=== PATIENT | female | born 1970 | race Caucasian/White ===

== ENCOUNTER → 2016-04-30 | Outpatient (CLI) | payer OTHER, BC ==
[~2016-04-30] MED LIST: ACYCLOVIR 400400 MG PO; ALLOPURINOL 30300 M2 PO; ASPIRIN PO; ATIVAN1 MG PO; BACTRIM DS TAB1 EACH PO; BIOTIN10000 MC1 PO; CALCIUM 600 +1 EAC1 PO; COLACE100 MG PO; CYCLOBENZAPRINE5 MG PO; DEXAMETHASONE4 MG PO; EVENING PRIMR1000 MG PO; FENTANYL PA50 MCG/HR TRANSDERM; FENTANYL PATCH; FLAX SEED OIL1000 MG PO; GABAPENTIN 100100 MG PO; GARCINIA CAMBO1 EACH PO; HYDROCODONE-AP1 EAC6 PO; IBUPROFEN 200200 M1 PO; KLOR-CON 1010 MEQ PO; KYPROLIS30 MG IV; LASIX 20 MG TAB20 MG PO; LIDODERM 5%1 PATC1 TRANSDERM; MELATONIN PO; MILK OF MA2400 MG/10 PO; OMEGA-31000 M1 PO; OMEPRAZOLE20 M2 PO; ONDANSETRON HCL4 M2 PO; OXYCODONE HCL15 MG PO; PHILLIPS CAPLETS PO; REVLIMID25 MG PO; TRAZODONE HCL100 MG PO; UNICOMPLEX M TA1 TA1 PO; VELCADE3.5 MG SUBQ; VITAMIN B-1100 M1 PO; VITAMIN D2000 UNIT PO; VITAMIN E400 UNIT PO; [UNRECOGNIZED DRUG - OTHER] IV; [UNRECOGNIZED DRUG - OTHER] PO
[2016-04-30 12:22] LABS: HEMATOCRIT 38.7 % (37.0-47.0); MCHC 33.5 % (28.0-37.0); MCV 89.5 fL (80.0-100.0); PLATELET COUNT 152 thou/uL (150-400); RBC 4.33 mil/uL (4.20-5.00); RDW 14.6 % (10.5-14.5); WBC 2.9 thou/uL (4.0-11.0)
[2016-04-30 12:27] LABS: MANUAL DIFF YES
[2016-04-30 12:40] LABS: ALBUMIN 3.8 g/dL (3.4-5.0); CALCIUM 9.3 mg/dL (8.5-10.1); CREATININE 0.8 mg/dL (0.6-1.3); POTASSIUM 4.3 mmol/L (3.5-5.1); TOTAL BILIRUBIN 0.4 mg/dL (<0.1-1.0); TOTAL PROTEIN 7.2 g/dL (6.4-8.2)
[2016-04-30 12:48] LABS: ABSOLUTE NEUTROPHILS 1.5 thou/uL (1.4-8.2); TOTAL CELL COUNT 100
== END ==
LOC: OPONC 08:21
PROVIDERS: Internal Medicine Hematology & Oncology
DX: C90.00 Multiple myeloma not having achieved remission (principal)

== ENCOUNTER → 2016-05-15 | Outpatient (CLI) | payer OTHER, BC ==
[~2016-05-15] VITALS: Ht 172.7 cm; Wt 66.7 kg
[2016-05-15 11:22] VITALS: BP 109/75
[2016-05-15 11:25] LABS: HEMATOCRIT 37.6 % (37.0-47.0); HEMOGLOBIN 12.6 gm/dL (12.0-15.0); MCH 29.9 pg (26.0-34.0); MCHC 33.5 % (28.0-37.0); MCV 89.2 fL (80.0-100.0); PLATELET COUNT 135 thou/uL (150-400); RBC 4.21 mil/uL (4.20-5.00); RDW 13.5 % (10.5-14.5); WBC 2.9 thou/uL (4.0-11.0)
[2016-05-15 11:27] LABS: MANUAL DIFF YES
[2016-05-15 11:32] LABS: CALCIUM 8.9 mg/dL (8.5-10.1); CREATININE 0.7 mg/dL (0.6-1.3); POTASSIUM 3.6 mmol/L (3.5-5.1)
[2016-05-15 11:37] LABS: ALBUMIN 3.4 g/dL (3.4-5.0); TOTAL BILIRUBIN 0.4 mg/dL (<0.1-1.0); TOTAL PROTEIN 6.7 g/dL (6.4-8.2)
[2016-05-15 11:59] LABS: ABSOLUTE NEUTROPHILS 1.9 thou/uL (1.4-8.2); TOTAL CELL COUNT 100
[2016-05-15 12:00] LABS: ANISOCYTOSIS SLIGHT
== END ==
LOC: OPONC 02:15
PROVIDERS: Internal Medicine Hematology & Oncology
DX: Z51.11 Encounter for antineoplastic chemotherapy (principal); C90.00 Multiple myeloma not having achieved remission

== ENCOUNTER → 2016-05-16 | Outpatient (CLI) | payer OTHER, BC ==
[2016-05-16 12:51] VITALS: BP 93/63
[2016-05-16 14:11] LABS: IgA 178 mg/dL (87-352); IgG 758 mg/dL (700-1600); IgM 23 mg/dL (26-217)
[2016-05-19 10:10] LABS: KAPPA FREE LIGHT CHAINS 5.7 mg/L (3.30-19.40); KAPPA/LAMBDA RATIO 0.95 (0.26-1.65); LAMBDA FREE LIGHT CHAINS 5.98 mg/L (5.71-26.30)
[2016-05-19 13:10] LABS: A/G RATIO 1.5 (0.7-1.7); ALBUMIN 3.5 g/dL (2.9-4.4); ALPHA 1 0.2 g/dL (0.0-0.4); ALPHA 2 0.6 g/dL (0.4-1.0); BETA 0.8 g/dL (0.7-1.3); GAMMA 0.7 g/dL (0.4-1.8); M-SPIKE Not Observed g/dL (Not Observed)
[2016-05-19 19:08] LABS: IFES COMMENT Note: (())
== END ==
LOC: OPONC 02:42
PROVIDERS: Internal Medicine Hematology & Oncology
DX: Z51.11 Encounter for antineoplastic chemotherapy (principal); C90.00 Multiple myeloma not having achieved remission

== ENCOUNTER → 2016-05-21 | Outpatient (CLI) | payer OTHER, BC ==
[2016-05-21 11:24] LABS: HEMATOCRIT 35.7 % (37.0-47.0); HEMOGLOBIN 12.1 gm/dL (12.0-15.0); MCHC 33.8 % (28.0-37.0); MCV 88.9 fL (80.0-100.0); RBC 4.02 mil/uL (4.20-5.00); RDW 13.6 % (10.5-14.5); WBC 2.4 thou/uL (4.0-11.0)
[2016-05-21 11:27] LABS: MANUAL DIFF YES
[2016-05-21 11:33] LABS: CALCIUM 8.4 mg/dL (8.5-10.1); CREATININE 0.7 mg/dL (0.6-1.3); POTASSIUM 4.1 mmol/L (3.5-5.1)
[2016-05-21 11:40] LABS: ALBUMIN 3.2 g/dL (3.4-5.0); TOTAL BILIRUBIN 0.3 mg/dL (<0.1-1.0); TOTAL PROTEIN 6.4 g/dL (6.4-8.2)
[2016-05-21 11:45] VITALS: BP 97/65
[2016-05-21 12:01] LABS: ABSOLUTE NEUTROPHILS 1.5 thou/uL (1.4-8.2); TOTAL CELL COUNT 100
[2016-05-21 12:03] LABS: PLATELET COUNT 80 thou/uL (150-400)
== END ==
LOC: OPONC 02:07
PROVIDERS: Internal Medicine Hematology & Oncology
DX: Z51.11 Encounter for antineoplastic chemotherapy (principal); C90.00 Multiple myeloma not having achieved remission

== ENCOUNTER → 2016-05-22 | Outpatient (CLI) | payer OTHER, BC ==
[2016-05-22 12:40] VITALS: BP 104/63
== END ==
LOC: OPONC 02:42
DX: Z51.11 Encounter for antineoplastic chemotherapy (principal); C90.00 Multiple myeloma not having achieved remission

== ENCOUNTER → 2016-06-18 | Outpatient (CLI) | payer OTHER, BC ==
[2016-06-18 10:17] LABS: MCH 30.2 pg (26.0-34.0); MCHC 33.5 g/dL (28.0-37.0); MCV 90.1 fL (80.0-100.0); PLATELET COUNT 126 thou/uL (150-400); RBC 3.99 mil/uL (4.20-5.00); RDW 14.1 % (10.5-14.5); WBC 3.7 thou/uL (4.0-11.0)
[2016-06-18 10:19] LABS: MANUAL DIFF YES
[2016-06-18 10:24] LABS: CALCIUM 8.7 mg/dL (8.5-10.1); CREATININE 0.7 mg/dL (0.6-1.3); POTASSIUM 4.1 mmol/L (3.5-5.1)
[2016-06-18 10:30] LABS: ALBUMIN 3.2 g/dL (3.4-5.0); TOTAL BILIRUBIN 0.5 mg/dL (<0.1-1.0); TOTAL PROTEIN 6.2 g/dL (6.4-8.2)
[2016-06-18 11:18] LABS: ABSOLUTE NEUTROPHILS 2.8 thou/uL (1.4-8.2); PLATELET ESTIMATE NORMAL; TOTAL CELL COUNT 100
[2016-06-18 20:10] LABS: IgA 82 mg/dL (87-352); IgG 604 mg/dL (700-1600); IgM 26 mg/dL (26-217)
[2016-06-19 13:08] LABS: KAPPA FREE LIGHT CHAINS 10.95 mg/L (3.30-19.40); KAPPA/LAMBDA RATIO 0.88 (0.26-1.65); LAMBDA FREE LIGHT CHAINS 12.44 mg/L (5.71-26.30)
[2016-06-20 15:06] LABS: A/G RATIO 1.4 (0.7-1.7); ALBUMIN 3.3 g/dL (2.9-4.4); ALPHA 1 0.2 g/dL (0.0-0.4); ALPHA 2 0.6 g/dL (0.4-1.0); BETA 0.9 g/dL (0.7-1.3); GAMMA 0.5 g/dL (0.4-1.8); M-SPIKE Not Observed g/dL (Not Observed)
[2016-06-20 20:10] LABS: IFES COMMENT Note: (())
== END ==
LOC: OPONC 03:05
PROVIDERS: Internal Medicine Hematology & Oncology
DX: C90.00 Multiple myeloma not having achieved remission (principal)

== ENCOUNTER → 2016-06-25 | Outpatient (CLI) | payer OTHER, BC ==
[2016-06-25 09:02] LABS: HEMATOCRIT 36.7 % (37.0-47.0); HEMOGLOBIN 12.3 gm/dL (12.0-15.0); MCH 30.5 pg (26.0-34.0); MCHC 33.6 g/dL (28.0-37.0); MCV 90.8 fL (80.0-100.0); PLATELET COUNT 132 thou/uL (150-400); RBC 4.04 mil/uL (4.20-5.00); RDW 15.3 % (10.5-14.5); WBC 2.6 thou/uL (4.0-11.0)
[2016-06-25 09:04] LABS: MANUAL DIFF YES
[2016-06-25 09:17] LABS: ALBUMIN 3.3 g/dL (3.4-5.0); CALCIUM 8.7 mg/dL (8.5-10.1); CREATININE 0.7 mg/dL (0.6-1.3); POTASSIUM 4.1 mmol/L (3.5-5.1); TOTAL BILIRUBIN 0.4 mg/dL (<0.1-1.0); TOTAL PROTEIN 6.2 g/dL (6.4-8.2)
[2016-06-25 09:47] LABS: HIV-1 P24 AG Nonreactive (Nonreactive)
[2016-06-25 09:54] LABS: ABSOLUTE NEUTROPHILS 1.6 thou/uL (1.4-8.2); ATYPICAL LYMPHS 4 %; TOTAL CELL COUNT 100
[2016-06-25 09:55] LABS: ANISOCYTOSIS SLIGHT; MICROCYTES SLIGHT
[2016-06-25 17:10] LABS: HEPATITIS C VIRUS AB <0.1 (0.0-0.9)
== END ==
LOC: OPONC 02:06
PROVIDERS: Internal Medicine Hematology & Oncology
DX: C90.00 Multiple myeloma not having achieved remission (principal)

== ENCOUNTER → 2016-07-16 | Outpatient (CLI) | payer OTHER, BC ==
[2016-07-16 08:33] LABS: HEMOGLOBIN 12.2 gm/dL (12.0-15.0); MCH 31.4 pg (26.0-34.0); MCV 92.4 fL (80.0-100.0); PLATELET COUNT 107 thou/uL (150-400); RBC 3.89 mil/uL (4.20-5.00); RDW 15.1 % (10.5-14.5); WBC 2.9 thou/uL (4.0-11.0)
[2016-07-16 08:35] LABS: MANUAL DIFF YES
[2016-07-16 08:46] LABS: ALBUMIN 3.2 g/dL (3.4-5.0); CALCIUM 8.6 mg/dL (8.5-10.1); CREATININE 0.8 mg/dL (0.6-1.3); POTASSIUM 3.8 mmol/L (3.5-5.1); TOTAL BILIRUBIN 0.5 mg/dL (<0.1-1.0)
[2016-07-16 09:11] LABS: ABSOLUTE NEUTROPHILS 1.9 thou/uL (1.4-8.2); TOTAL CELL COUNT 100
== END ==
LOC: OPONC 13:07
PROVIDERS: Internal Medicine Hematology & Oncology
DX: C90.00 Multiple myeloma not having achieved remission (principal)

== ENCOUNTER → 2016-07-23 | Outpatient (CLI) | payer OTHER, BC ==
[2016-07-23 08:15] VITALS: BP 92/36
[2016-07-23 08:43] LABS: HEMATOCRIT 33.9 % (37.0-47.0); HEMOGLOBIN 11.5 gm/dL (12.0-15.0); MCH 31.7 pg (26.0-34.0); MCHC 33.8 g/dL (28.0-37.0); MCV 93.7 fL (80.0-100.0); PLATELET COUNT 90 thou/uL (150-400); RBC 3.62 mil/uL (4.20-5.00); RDW 14.1 % (10.5-14.5)
[2016-07-23 08:45] LABS: MANUAL DIFF YES
[2016-07-23 08:56] LABS: ALBUMIN 2.9 g/dL (3.4-5.0); CALCIUM 8.3 mg/dL (8.5-10.1); CREATININE 0.8 mg/dL (0.6-1.3); POTASSIUM 3.7 mmol/L (3.5-5.1); TOTAL BILIRUBIN 0.6 mg/dL (<0.1-1.0); TOTAL PROTEIN 5.5 g/dL (6.4-8.2)
[2016-07-23 09:18] LABS: ABSOLUTE NEUTROPHILS 0.9 thou/uL (1.4-8.2); TOTAL CELL COUNT 100
[2016-07-23 09:19] LABS: ANISOCYTOSIS SLIGHT
[2016-07-23 13:12] LABS: IgA 82 mg/dL (87-352); IgG 534 mg/dL (700-1600)
[2016-07-23 14:14] LABS: IgM 17 mg/dL (26-217)
[2016-07-24 12:10] LABS: KAPPA FREE LIGHT CHAINS 11.79 mg/L (3.30-19.40); KAPPA/LAMBDA RATIO 0.94 (0.26-1.65); LAMBDA FREE LIGHT CHAINS 12.59 mg/L (5.71-26.30)
[2016-07-24 19:12] LABS: A/G RATIO 1.6 (0.7-1.7); ALBUMIN 3.1 g/dL (2.9-4.4); ALPHA 1 0.3 g/dL (0.0-0.4); ALPHA 2 0.5 g/dL (0.4-1.0); BETA 0.8 g/dL (0.7-1.3); GAMMA 0.4 g/dL (0.4-1.8); M-SPIKE Not Observed g/dL (Not Observed)
[2016-07-25 18:06] LABS: IFES COMMENT Note: (())
== END ==
LOC: OPONC 07:09
PROVIDERS: Internal Medicine Hematology & Oncology
DX: C90.00 Multiple myeloma not having achieved remission (principal)

== ENCOUNTER → 2016-07-30 | Outpatient (CLI) | payer OTHER, BC ==
[2016-07-30 09:02] LABS: HEMATOCRIT 36.4 % (37.0-47.0); HEMOGLOBIN 12.3 gm/dL (12.0-15.0); MCH 31.4 pg (26.0-34.0); MCHC 33.7 g/dL (28.0-37.0); MCV 93.3 fL (80.0-100.0); PLATELET COUNT 103 thou/uL (150-400); RDW 13.9 % (10.5-14.5); WBC 2.2 thou/uL (4.0-11.0)
[2016-07-30 09:07] LABS: MANUAL DIFF YES
[2016-07-30 09:09] LABS: CALCIUM 8.6 mg/dL (8.5-10.1); CREATININE 0.8 mg/dL (0.6-1.0); POTASSIUM 4.3 mmol/L (3.5-5.1)
[2016-07-30 09:14] LABS: ALBUMIN 3.2 g/dL (3.4-5.0); TOTAL BILIRUBIN 0.5 mg/dL (<0.1-1.0); TOTAL PROTEIN 5.8 g/dL (6.4-8.2)
[2016-07-30 09:41] LABS: ABSOLUTE NEUTROPHILS 1.2 thou/uL (1.4-8.2); PLATELET ESTIMATE SLIGHTLY DECREASED; TOTAL CELL COUNT 100
== END ==
LOC: OPONC 06:31
PROVIDERS: Internal Medicine Hematology & Oncology
DX: C90.00 Multiple myeloma not having achieved remission (principal); R94.5 Abnormal results of liver function studies

== ENCOUNTER → 2016-08-06 | Outpatient (CLI) | payer OTHER, BC ==
[2016-08-06 08:20] LABS: HEMOGLOBIN 13.2 gm/dL (12.0-15.0)
[2016-08-06 08:22] LABS: HEMATOCRIT 39.3 % (37.0-47.0); MCH 31.8 pg (26.0-34.0); MCHC 33.7 g/dL (28.0-37.0); MCV 94.6 fL (80.0-100.0); PLATELET COUNT 136 thou/uL (150-400); RBC 4.16 mil/uL (4.20-5.00); RDW 13.5 % (10.5-14.5)
[2016-08-06 08:27] LABS: CALCIUM 8.6 mg/dL (8.5-10.1); CREATININE 0.8 mg/dL (0.6-1.0); POTASSIUM 4.2 mmol/L (3.5-5.1)
[2016-08-06 08:30] LABS: MANUAL DIFF YES; WBC 1.9 thou/uL (4.0-11.0)
[2016-08-06 08:31] LABS: ALBUMIN 3.3 g/dL (3.4-5.0); TOTAL BILIRUBIN 0.4 mg/dL (<0.1-1.0); TOTAL PROTEIN 6.3 g/dL (6.4-8.2)
[2016-08-06 09:24] LABS: ABSOLUTE NEUTROPHILS 0.7 thou/uL (1.4-8.2); ATYPICAL LYMPHS 1 %; TOTAL CELL COUNT 100
[2016-08-06 09:26] LABS: ANISOCYTOSIS SLIGHT
== END ==
LOC: OPONC 06:28
PROVIDERS: Internal Medicine Hematology & Oncology
DX: C90.00 Multiple myeloma not having achieved remission (principal); R94.5 Abnormal results of liver function studies

== ENCOUNTER → 2016-08-13 | Outpatient (CLI) | payer OTHER, BC ==
[2016-08-13 09:19] LABS: HEMATOCRIT 39.6 % (37.0-47.0); HEMOGLOBIN 13.3 gm/dL (12.0-15.0); MCH 31.6 pg (26.0-34.0); MCHC 33.6 g/dL (28.0-37.0); MCV 94.1 fL (80.0-100.0); PLATELET COUNT 146 thou/uL (150-400); RBC 4.21 mil/uL (4.20-5.00); RDW 12.8 % (10.5-14.5)
[2016-08-13 09:22] LABS: MANUAL DIFF YES
[2016-08-13 09:27] LABS: CALCIUM 8.8 mg/dL (8.5-10.1); CREATININE 0.7 mg/dL (0.6-1.0); POTASSIUM 4.2 mmol/L (3.5-5.1)
[2016-08-13 09:38] LABS: ALBUMIN 3.2 g/dL (3.4-5.0); TOTAL BILIRUBIN 0.3 mg/dL (<0.1-1.0); TOTAL PROTEIN 6.4 g/dL (6.4-8.2)
[2016-08-13 10:25] LABS: ABSOLUTE NEUTROPHILS 1.2 thou/uL (1.4-8.2); ANISOCYTOSIS SLIGHT; POIKILOCYTOSIS SLIGHT; TOTAL CELL COUNT 100
== END ==
LOC: OPONC 08:22
PROVIDERS: Internal Medicine Hematology & Oncology
DX: C90.00 Multiple myeloma not having achieved remission (principal); R94.6 Abnormal results of thyroid function studies